=== PATIENT | male | born 2005 | race Caucasian/White ===

== ENCOUNTER 2023-09-04 17:54 | Emergency (ER) | payer SELFPAY ==
[2023-09-04] MEDS ORDERED: Lidocaine 1% PF 5 ML VIAL ONE (18:06)
== END 2023-09-04 19:00 | disposition home or self-care (01) ==
LOC: CSHERS 17:54
DX: S02.2XXA Fracture of nasal bones, initial encounter for closed fracture (principal); S01.511A Laceration without foreign body of lip, initial encounter; F10.129 Alcohol abuse with intoxication, unspecified; Y04.0XXA Assault by unarmed brawl or fight, initial encounter
CPT/HCPCS: 12001; 70450; 70486